=== PATIENT | female | born 1990 | race Hispanic/Latino ===

== ENCOUNTER 2018-07-04 16:52 | Emergency (ER) | payer MEDICAID, OTHER ==
[2018-07-04 16:52] VITALS: BMI 31.1
[2018-07-04 17:06] VITALS: BP 114/40; PULSE 65; RESP 16; TEMP 97.6; O2SAT 100
[2018-07-04] MEDS ORDERED: Sodium Chloride 0.9% 1,000 ML IV ONE (17:25)
[2018-07-04] MEDS ORDERED: Iohexol 240 (50 ml) PO STA (17:25)
--- NOTE | 2018-07-04 17:25 | C.PDOC ---
History Of Present Illness 28 years old female presents to ED for intermittent, sharp, crampy, and localized suprapubic pain that began yesterday. Patient also reports sudden onset 3 episodes of vomiting and 1 episode of diarrhea that began today. Denies associated pain with bowel movements. Patient also reports new onset pounding headache that began today but denies PMHx of frequent migraines. LNMP 06/28/18. Denies past surgical history. Time Seen by Provider: 07/04/18 17:00 Chief Complaint (Nursing): Abdominal Pain History Per: Patient History/Exam Limitations: no limitations Onset/Duration Of Symptoms: Days (1), Intermittent Episodes, Sudden Onset Current Symptoms Are (Timing): Still Present Recent travel outside of the [place]: No Past Medical History Reviewed: Historical Data, Nursing Documentation, Vital Signs Vital Signs: Last Vital Signs Temp 97.6 F 07/04/18 17:01 Pulse 65 07/04/18 17:01 Resp 16 07/04/18 17:01 BP 114/40 L 07/04/18 17:01 Pulse Ox 100 07/04/18 17:01 - Medical History PMH: Anemia (noted on labs today) Surgical History: No Surg Hx - [facility] Procedures DELIVERY OF PRODUCTS OF CONCEPTION, EXTERNAL APPROACH (12/21/16) MONITORING OF POC, CARDIAC RATE, [employer] 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 Negative for: Weakness, Numbness Physical Exam - Physical Exam Appears: Non-toxic, In Acute Distress (Moderate ) Skin: Normal Color, Warm, Dry, No Rash Head: Atraumatic, Normacephalic Eye(s): bilateral: Normal Inspection (No photophobia ), PERRL, EOMI Oral Mucosa: Moist Neck: Normal ROM, Supple Chest: Symmetrical, No Tenderness Cardiovascular: Rhythm Regular, No Murmur Respiratory: Normal Breath Sounds, No Decreased Breath Sounds, No Rales, No Rhonchi, No Wheezing Gastrointestinal/Abdominal: Normal Exam, Bowel Sounds (Active ), Soft, No Tenderness, No Distention, No Guarding, No Rebound Extremity: Normal ROM Extremity: Bilateral: Atraumatic, Normal Color And Temperature, Normal ROM Pulses: Left Radial: Normal, Right Radial: Normal Neurological/Psych: Oriented x3, Normal Speech, Normal Motor, Normal Sensation, Normal Reflexes, Other (No focal deficits ) Gait: Steady ED Course And Treatment - Laboratory Results Result Diagrams: 07/04/18 17:32 07/04/18 17:32 O2 Sat by Pulse Oximetry: 100 (RA) Pulse Ox Interpretation: Normal Progress - Re-Evaluation Re-evaluation Note: 07/04/18 18:00 PT NO LONGER WISHES TO CONT ER EVAL, WANTS IV OUT AND NO LONGER WANTS ADDL MEDS OR CT SCANS. FAMILY @ BEDSIDE. The risks of leaving were explained to the patient and include, but are not limited to, worsening of known or currently unknown conditions, permanent disability and from undiagnosed or untreated conditions. The patient has the capacity to make this informed decision and understands my explanation of the current medical problem and risks of leaving. The patient voluntarily accepts these risks and signed an AMA form documenting our conversation. The patient was given the opportunity to ask questions and reconsider. The patient was encouraged to return to the Emergency Department at any time for further care. - Data Reviewed Data Reviewed: Lab, Diagnostic imaging, Old records Medical Decision Making Medical Decision Making: Plan: * Bentyl * Magnesium Sulfate * Omnipaque * Reglan * IV Fluids * Toradol * Blood work * Urinalsysis * CT Head * CT Abdomen/Pelvis Disposition Counseled Patient/Family Regarding: Studies Performed, Diagnosis, Need For Followup - Disposition Referrals: YOUR,PMD [Other] Disposition: HOME/ ROUTINE Disposition Time: 18:01 Condition: IMPROVED Additional Instructions: YOU HAVE BEEN ADVISED OF THE NEED FOR FURTHER TESTING OF YOUR EMERGENCY MEDICAL CONDITION. YOU HAVE BEEN ADVISED THE RISKS OF LEAVING INCLUDING DISABILITY, DETERIORATION AND . YOU HAVE STATED VERBAL UNDERSTANDING AND WISH TO PROCEED TO LEAVE AGAINST MEDICAL ADVICE. FOLLOW UP WITH YOUR PMD FLAVIO. RETURN IF WORSENING SYMPTOMS. Instructions: Leaving Against Medical Advice, Acute Abdomen (Belly Pain), Adult (DC) Forms: [employer] (Urdu) - Clinical Impression Clinical Impression: Abdominal pain, Diarrhea, Headache - Scribe Statement The provider has reviewed the documentation as recorded by the Yuanibe Jordana Cedillo All medical record entries made by the Yuanibe were at my direction and personally dictated by me. I have reviewed the chart and agree that the record accurately reflects my personal performance of the history, physical exam, medical decision making, and the department course for this patient. I have also personally directed, reviewed, and agree with the discharge instructions and disposition.
[2018-07-04] MEDS ORDERED: Magnesium Sulfate 1 gm in D5W 1 GM/100 ML BAG IVPB STA (17:26)
[2018-07-04 17:34] LABS: BASO % 0.3 % (0.0-2.0); EOS % 0.3 % (0.0-4.0); HEMOGLOBIN 13.4 g/dL (11.0-16.0); LYMPH # 1.7 K/uL (1.0-4.3); LYMPH % 13.2 % (20.0-40.0); MEAN CELL VOLUME 85.4 fL (81.0-99.0); MEAN CORPUSCULAR HEMOGLOBIN 28.8 pg (27.0-31.0); MEAN CORPUSCULAR HGB CONC 33.7 g/dL (33.0-37.0); MEAN PLATELET VOLUME 8.7 fL (7.2-11.7); MONO # 0.7 K/uL (0.0-0.8); NEUT # 10.7 K/uL (1.8-7.0); NEUT % 81.2 % (50.0-75.0); RBC 4.65 Mil/uL (3.80-5.20); RED CELL DISTRIBUTION WIDTH 12.8 % (11.5-14.5); WHITE BLOOD COUNT 13.1 K/uL (4.8-10.8)
[2018-07-04 17:42] LABS: SQUAMOUS EPITHIAL 13 /hpf (0-5); URINE BACTERIA MOD (<OCC); URINE BILIRUBIN NEGATIVE (NEGATIVE); URINE BLOOD NEGATIVE (NEGATIVE); URINE CLARITY Clear (Clear); URINE COLOR Yellow (YELLOW); URINE GLUCOSE (UA) NORMAL (Normal); URINE LEUKOCYTE ESTERASE TRACE Leu/uL (Negative); URINE PROTEIN NEGATIVE (NEGATIVE); URINE UROBILINOGEN NORMAL mg/dL (0.2-1.0)
[2018-07-04] MEDS ORDERED: Iohexol 240 (50 ml) ONE (17:42)
[2018-07-04] MEDS ORDERED: Sodium Chloride 0.9% 1,000 ML ONE (17:44)
[2018-07-04] MEDS ORDERED: Magnesium Sulfate 1 gm in D5W 1 GM/100 ML BAG IVPB ONE (17:44)
[2018-07-04 17:49] LABS: ALB/GLOB RATIO 1.5 (1.0-2.1); ALBUMIN 4.8 g/dL (3.5-5.0); ALT/SGPT 31 U/L (9-52); AST/SGOT 26 U/L (14-36); BLOOD UREA NITROGEN 16 mg/dL (7-17); CALCIUM 9.2 mg/dl (8.6-10.4); GFR NON-AFRICAN AMERICAN > 60; LIPASE 77 U/L (23-300)
== END 2018-07-04 18:07 | disposition home or self-care (01) ==
LOC: C.ER 16:52
DX: R10.30 Lower abdominal pain, unspecified (principal); R19.7 Diarrhea, unspecified; R51 Headache
CPT/HCPCS: 80053; 81001; 83690; 85025; 96374; 96375; 99285; J1885; J2765; J7030; Q9966

== ENCOUNTER 2018-09-13 21:10 | Emergency (ER) | payer MEDICAID, OTHER ==
[2018-09-13 21:10] VITALS: BMI 23.4
[2018-09-13 21:20] VITALS: BP 99/65; PULSE 100; TEMP 97.4; O2SAT 98
[2018-09-14] MEDS ORDERED: cefTRIAXone (Rocephin) 250 mg Inj IM STA (00:11)
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
[2018-09-14 00:56] VITALS: RESP 20
== END 2018-09-14 00:55 | disposition home or self-care (01) ==
LOC: C.ER 21:10
DX: T76.21XA Adult sexual abuse, suspected, initial encounter (principal)
CPT/HCPCS: 96372; 99285; J0696